=== PATIENT | female | born 1975 ===

== ENCOUNTER → 2020-11-22 | Day surgery (SDC) | payer OTHER ==
[~2020-11-22] VITALS: Ht 180.3 cm; Wt 108.4 kg
[~2020-11-22] MED LIST: ARMOUR THYROID15 MG PO; BREO ELLIPTA 11 EACH INH; DIM PO; PROGESTERONE100 MG PO; RYBELSUS PO; VITAMIN D3125 MC2 PO
[2020-11-22 09:38] LABS: HCG (URINE) SCREEN NEGATIVE (NEGATIVE)
[2020-11-22 10:29] LABS: HCT 40.8 % (37.0-47.0); HGB 13.7 g/dl (12.5-16.0); MCH 31.2 pg (25.0-31.0); MCHC 33.6 g/dL (32.0-36.0); MCV 92.9 fL (78.0-100.0); RBC 4.39 M/uL (4.20-5.40); RDW 12.7 % (11.5-14.0); WBC 3.7 K/uL (4.0-10.5)
== END | disposition home or self-care (01) ==
LOC: FAS 08:53
PROVIDERS: Specialist
DX: N92.1 Excessive and frequent menstruation with irregular cycle (principal); Z98.51 Tubal ligation status; I49.1 Atrial premature depolarization; I49.3 Ventricular premature depolarization
CPT/HCPCS: 36415; 84703; J0690; J1100; J1885; J2001; J2250; J2405; J2704; J3010; J7120